=== PATIENT | female | born 1955 | race African-American/Black ===

== ENCOUNTER → 2020-09-11 | Outpatient (CLI) | payer OTHER | LOC: CAT 14:23 | PROVIDERS: ATTEND Family Medicine | DX: I70.0 Atherosclerosis of aorta (principal); M25.78 Osteophyte, vertebrae; J98.4 Other disorders of lung; J47.9 Bronchiectasis, uncomplicated; Z87.891 Personal history of nicotine dependence ==

== ENCOUNTER → 2021-09-20 | Outpatient (CLI) | payer OTHER | LOC: RAD 09:02 | PROVIDERS: ATTEND Pediatrics | DX: R91.8 Other nonspecific abnormal finding of lung field (principal); J98.11 Atelectasis; J43.9 Emphysema, unspecified; R06.02 Shortness of breath ==